=== PATIENT | female | born 1945 ===

== ENCOUNTER 2022-03-01 10:08 | Observation (INO) ==
[~2022-03-01 10:08] MED LIST: Buffered Lidocaine 1% SYRIN 1 ml INTRADERM ONE; Lactated Ringers 1000 ml BAG 1,000 ML IV SCH
[2022-03-01] MEDS ORDERED: Propofol 10 MG/ML 20 ML BTL ONE (10:13)
[2022-03-01] MEDS ORDERED: Ketamine HCL 50 mg/ml 10 ml VIAL (500 MG) ONE (10:13)
[2022-03-01] MEDS ORDERED: Lidocaine 2% PF 5 ML VIAL ONE (10:13)
[2022-03-01] MEDS ORDERED: ceFAZolin 2 GM PREMIX 2 GM/50 ML BAG ONE (10:32)
[2022-03-01] MEDS ORDERED: Midazolam 2 mg/2 ml VIAL 1 mg/ml 2 ml VIAL (2 mg) ONE ×2 (10:53→13:05)
[2022-03-01] MEDS ORDERED: ROPIVACAINE 5 MG/ML 30 ML BTL (0.5%) ONE (12:16)
[2022-03-01] MEDS ORDERED: Lidocaine 1% MPF 5 ML VIAL ONE (12:16)
[2022-03-01] MEDS ORDERED: fentaNYL 100 mcg/2 ml 50 MCG/ML VIAL ONE (13:08)
[2022-03-01] MEDS ORDERED: fentaNYL 250 mcg/5 ml 50 MCG/ML 5 ml VIAL (250 MCG) ONE (13:27)
[2022-03-01] MEDS ORDERED: Ondansetron 4 mg VIAL 2 MG/ML 2 ml VIAL ONE (13:49)
[2022-03-01] MEDS ORDERED: Dexamethasone IV 4 MG/ML VIAL 1 ml VIAL ONE (13:49)
[2022-03-01] MEDS ORDERED: Sterile Water for Inj 10 ML ONE (13:56)
[2022-03-01] MEDS ORDERED: EPHEDrine (Pressors) 50 MG/ML VIAL ONE (13:56)
[2022-03-01] MEDS ORDERED: Glycopyrrolate IV 0.2 MG/ML 1 ML VIAL ONE (13:56)
[2022-03-01] MEDS ORDERED: diPHENhydraMINE 25 mg TAB PO PRN (14:27)
[2022-03-01] MEDS ORDERED: Lactulose 30 ml UDC PO PRN (14:27)
[2022-03-01] MEDS ORDERED: Ondansetron 4 mg VIAL 2 MG/ML 2 ml VIAL IV PRN ×2 (14:27→15:36)
[2022-03-01] MEDS ORDERED: diPHENhydraMINE IV 50 MG/ML 1 ml VIAL (BENADRYL) IV PRN (14:27)
[2022-03-01] MEDS ORDERED: Morphine 2 MG/ML SYRINGE IV PRN (14:27)
[2022-03-01] MEDS ORDERED: Magnesium Hydroxide LIQ 30 ML UDC PO PRN (14:27)
[2022-03-01] MEDS ORDERED: Ondansetron ODT 4 mg TAB 4 MG TAB PO PRN (14:27)
[2022-03-01] MEDS ORDERED: Lactated Ringers 1000 ml BAG 1,000 ML IV SCH (15:00)
[2022-03-01] MEDS ORDERED: Naloxone 0.4 mg VIAL 0.4 mg/ml 1 ml VIAL IV PRN (15:36)
[2022-03-01] MEDS ORDERED: Acetaminophen IV 1 GM/100ML 100 ML IV PRN (15:36)
[2022-03-01] MEDS ORDERED: HYDROmorphone 1 MG/1 ML SYRINGE IV PRN (15:36)
[2022-03-01] MEDS ORDERED: fentaNYL 100 mcg/2 ml 50 MCG/ML VIAL IV PRN (15:36)
[2022-03-01] MEDS ORDERED: DiMENhydriNATE IV 50 mg/ml 1 ml VIAL IV PUSH PRN (15:36)
[2022-03-01] MEDS ORDERED: Acetaminophen IV 1 GM/100ML 100 ML IV ONE (15:48)
[2022-03-01] MEDS: Magnesium Hydroxide LIQ 30 ML UDC PO SCH (21:03)
[2022-03-01] MEDS ORDERED: ceFAZolin 1 GM ADVAN 1 GM in NS 0.9% 50 ML 50 ML IVPB SCH (22:30)
[2022-03-01] MEDS: ceFAZolin VIAL 1 GM in NS 0.9% 50 ML 50 ML IVPB SCH (23:02)
[2022-03-02] MEDS: ceFAZolin VIAL 1 GM in NS 0.9% 50 ML 50 ML IVPB SCH ×2 (06:45→14:13)
[2022-03-02 07:35] LABS: Hematocrit 35 % (35-47); Hemoglobin 11.9 g/dL (12.0-16.0); Platelet Count 234 10^3/uL (150-450)
[2022-03-02 07:44] LABS: Calcium 8.2 mg/dL (8.6-10.3); Potassium 3.9 mmol/L (3.5-5.0); eGFR CKD-EPI 60.6 (>60)
[2022-03-02] MEDS: Magnesium Hydroxide LIQ 30 ML UDC PO SCH (08:53)
[2022-03-02] MEDS ORDERED: Vitamin THERAPEUTIC TAB PO SCH (09:00)
[2022-03-02 11:32] VITALS: BP 137/65
== END 2022-03-02 15:30 | disposition home or self-care (01) ==
LOC: SSU 10:08 → OR 10:08
PROVIDERS: ADMIT Orthopaedic Surgery Adult Reconstructive Orthopaedic Surgery; ATTEND Orthopaedic Surgery Adult Reconstructive Orthopaedic Surgery